=== PATIENT | female | born 1970 | race Caucasian/White ===

== ENCOUNTER 2016-12-23 23:30 | Emergency (ER) | payer OTHER ==
[2016-12-24 00:28] LABS: URINE SOURCE CLEAN CATCH
[2016-12-24 00:48] LABS: BILIRUBIN URINE NEGATIVE (NEGATIVE); BLOOD URINE 4+ (NEGATIVE); CLARITY CLEAR (CLEAR); COLOR YELLOW; GLUCOSE URINE NEGATIVE (NEGATIVE); LEUKOCYTES URINE 2+ (NEGATIVE); NITRITE URINE NEGATIVE (NEGATIVE); PROTEIN URINE 1+(30 mg/dL) mg/dL (NEGATIVE); SP GRAVITY URINE 1.025; UROBILINOGEN URINE 4+(12 mg/dL)
[2016-12-24 00:51] LABS: URINE CULTURE PL NEEDED? YES; URINE EPITHELIAL CELLS <10 /HPF (<10); URINE RBC 20-40 /HPF (<10)
--- NOTE | 2016-12-24 01:22 | PROVIDER DOCUMENTATION ---
HPI-Female /OB/Breast - General Chief Complaint: Abdominal Pain Stated Complaint: FEMALE Time Seen by Provider: 12/24/16 00:38 Source: reports: patient, family Allergies/Adverse Reactions: Patient Allergies Allergy/AdvReac Type Severity Reaction Status Date / Time No Known Allergies Allergy Verified 12/23/16 23:44 Home Medications: Home Medication List Medication Instructions Recorded Confirmed Last Taken Type Aspirin 325 mg PO DAILY #1 tablet 08/14/15 12/23/16 10/17/16 Rx Cholecalciferol (Vitamin D3) 50,000 unit PO DIRECTED 06/04/16 12/23/16 Unknown History [Vitamin D3] Metoprolol Succinate E.r. [Toprol 12.5 mg PO BID 06/04/16 12/23/16 10/17/16 History Xl] PRAVAstatin [Pravachol] 20 mg PO HS 06/04/16 12/23/16 10/17/16 History Hydrocodone/Acetaminophen [[place] 1 each PO Q4H PRN 10/18/16 12/23/16 10/17/16 History 10-325 Tablet] Cephalexin [Keflex] 500 mg PO BID #20 capsule 12/24/16 Unknown Rx - History of Present Illness-Female /OB Nature of Presenting Problem: 46 year old WF with PMH, HTN, CVA with right sided deficits presents with c/o suprapubic abd pain for 2 days. pt reports a history of same several months ago. denies dysuria, fever, chills, nausea, vomiting, diarrhea. pt reports her appetite has decreased in the last 2 days. Does patient report she is ?: No Location of complaint: reports: suprapubic Radiation: reports: none Quality of Pain: reports: dull, sharp, stabbing Severity in ED: reports: mild Onset/Duration: reports: 2 days ago Timing: reports: still present, constant, getting worse Context/Activities at Onset: reports: none Vaginal Symptoms: reports: no symptoms Vaginal Bleeding Amount: None Urinary Symptoms: reports: no symptoms Associated Symptoms: reports: loss of appetite Similar Symptoms Previously?: Yes Recently seen or treated by another doctor?: No Review of Systems - Adult - REVIEW OF SYSTEMS - ADULT Constitutional: reports: no symptoms reported. denies: chills, fever, fatique Eyes: reports: no symptoms reported. denies: discharge, blurred vision, double vision, redness Ears, Nose, Mouth & Throat: reports: no symptoms reported. denies: ear discharge, ear pain, nose pain, loose teeth, throat pain, throat swelling Cardiovascular: reports: no symptoms reported. denies: chest pain, palpitations , syncope Respiratory: reports: no symptoms reported. denies: chronic cough, cough, shortness of breath, wheezing Gastrointestinal: reports: see HPI, abdominal pain, poor appetite. denies: hematemesis, constipation, diarrhea, difficulty swallowing, frequent heartburn, nausea, rectal bleeding, vomiting Genitourinary: reports: see HPI. denies: dysuria, discharge, frequency, flank pain, frequent UTI's, hematuria, hesitency, incontinence, urinary retention, urgency Musculoskeletal: reports: no symptoms reported. denies: bone pain, joint pain, joint swelling, neck pain Integumentary: reports: no symptoms reported. denies: hives, nail changes, skin sores/ulcer Neurological: reports: no symptoms reported. denies: ataxia, dizziness/vertigo , numbness, paresthesia Psychiatric: reports: no symptoms reported Endocrine: reports: no symptoms reported Hematologic/Lymphatic: reports: no symptoms reported Allergic/Immunologic: reports: no symptoms reported All Other Systems: Reviewed and Negative Past History - Adult - PAST MEDICAL HISTORY-ADULT Review of Records: reports: Old Records Reviewed, Nursing Assessment Review, Medications Reviewed, Social history reviewed & non-contributory. Major Childhood Illnesses: reports: denies history Cardiovascular: reports: denies history Respiratory: reports: denies history Gastrointestinal: reports: GERD Obstetrical/Gynecological: reports: denies history Genitourinary: reports: denies history Musculoskeletal: reports: denies history Neurological: reports: cognitive dysfunction, CVA, stroke deficits, speech difficulty Endocrine/Immune: reports: denies history Other Conditions: reports: denies history - PRIOR SURGERIES/PROCEDURES Surgical/Procedure History: reports: hysterectomy - IMMUNIZATION STATUS Childhood Immunizations: See Nurse Assessment Flu Vaccine: See Nurse Assessment - FAMILY HISTORY Family History: reviewed, not pertinent - SOCIAL HISTORY Smoking: cigarettes Provider spent 3-5 mins advising pt. on dangers of tobacco.: Discussed manners to quit use, and f/u contacts for add'l counseling. Substance Use: none/never Alcohol Use Frequency: never Physical Exam-General - PHYSICAL EXAM-ADULT Initial Vital Signs Reviewed: Yes - CONSTITUTIONAL General Appearance: appears well, alert, no apparent distress. negative: mild distress, moderate distress, severe distress - EYES Eyes: pink conjunctivae. negative: conjuctival exudate, pale conjunctivae, photophobia, sclera injected, scleral icterus, subconjunctival hemorrhage - HEAD, EARS, NOSE, MOUTH & THROAT HENMT: normocephalic/atraumatic, moist mucous membranes, normal ENT inspection - NECK Neck: non-tender, full range of motion, supple, normal inspection - RESPIRATORY Respiratory: chest non-tender, lungs clear, normal breath sounds, no pleuratic chest pain, no respiratory distress, no accessory muscle use. negative: respiratory distress, decreased breath sounds, accessory muscle use, crackles, rales, rhonchi - CARDIOVASCULAR Cardiovascular: normal peripheral pulses, regular rate, rhythm, no edema, no gallop - GASTROINTESTINAL (ABDOMEN) Abdominal Exam: normal bowel sounds, soft, tenderness (generalized abd pain, non -focal). negative: non tender, distended, guarding, rigid, rebound, hernia, mass, hepatomegaly, spleenomegaly, McBurney's point tenderness, Dumas's sign, obturator sign, psoas, Rovsing's sign - GENITOURINARY Female Genitalia/Pelvic Exam: deferred Rectal Exam: deferred Hemoccult Exam: deferred - LYMPHATIC Lymphatic: no adenopathy - MUSCULOSKELETAL Back Exam: normal inspection, no CVA tenderness, no vertebral tenderness Extremity: normal range of motion, non-tender, normal gait, normal inspection, no pedal edema, no calf tenderness, normal capillary refill Peripheral Pulses: radial (R): 3+, radial (L): 3+, dorsalis-pedis (R): 3+, dorsalis-pedis (L): 3+ - SKIN Integumentary: normal color, normal turgor, warm/dry - NEUROLOGIC Neurologic: grossly normal, no motor/sensory deficits - PSYCHIATRIC Psych/Mental Status: normal mood/affect, normal thought content, normal thought process, oriented x 3 Progress - PLAN OF CARE/RESULTS Progress/Plan/Lab Results: Laboratory Tests 12/23/16 12/23/16 12/23/16 00:38 00:38 23:50 WBC 11.87 H RBC 3.95 L Hgb 8.1 L Hct 26.8 L MCV 67.8 L MCH 20.5 L MCHC 30.2 L RDW Std Deviation 20.1 H Plt Count 432 H MPV 10.7 H Immature Gran % (Auto) 0.2 Neut % (Auto) 59.5 Lymph % (Auto) 28.8 [place] % (Auto) 6.4 Eos % (Auto) 4.5 Baso % (Auto) 0.6 Immature Gran # (Auto) 0.02 Neut # (Auto) 7.07 H Lymph # (Auto) 3.42 H [place] # (Auto) 0.76 H Eos # (Auto) 0.53 Baso # (Auto) 0.07 Segmented Neutrophils 61 Band Neutrophils 2 H Lymphocytes 25 Monocytes 7 Eosinophils 5 Hypochromia 2+ Large Platelets OCCASIONAL Poikilocytosis 2+ Anisocytosis 3+ Microcytosis 3+ Target Cells 1+ Ovalocytes 1+ Stomatocytes 1+ Sodium 143 Potassium 3.9 Chloride 107 Carbon Dioxide 25 Anion Gap 12 BUN 26 H Creatinine 1.2 H Estimated GFR/1.73 m2 48 BUN/Creatinine Ratio 22 Glucose 95 Calculated Osmolality 290 Calcium 9.4 Total Bilirubin < 0.15 L AST 8 L ALT < 5 L Alkaline Phosphatase 70 Total Protein 7.3 Albumin 3.8 Globulin 4.0 Albumin/Globulin Ratio 1.0 Amylase 47 Lipase 29 Urine Source CLEAN CATCH Urine Color YELLOW Urine Clarity CLEAR Urine pH 5.0 Ur Specific [place] 1.025 Urine Protein 1+(30 mg/dL) A Urine Ketones TRACE Urine Blood 4+ Urine Nitrite NEGATIVE Urine Bilirubin NEGATIVE Urine Urobilinogen 4+(12 mg/dL) Urine Microscopic RBC 20-40 A Urine WBC 2+ A Urine Microscopic WBC 10-20 A Ur Epithelial Cells <10 Urine Bacteria 3+ Urine Glucose NEGATIVE Orders Category Date Time Status FLAT/UPRIGHT ABD/1 VIEW CHEST [RAD] Stat Exams 12/24/16 01:15 Completed AMYLASE [CHEM] Stat Lab 12/23/16 00:38 Completed CBC WITH DIFF [HEME] Stat Lab 12/23/16 00:38 Completed COMPREHENSIVE METABOLIC PANEL [CHEM] Stat Lab 12/23/16 00:38 Completed LIPASE [CHEM] Stat Lab 12/23/16 00:[address] W/POSS RFLX CULT [URINALYSIS] Stat Lab 12/24/16 00:23 Completed URINE CULTURE [RM] Routine Lab 12/24/16 00:51 Results CefTRIAXONE [Rocephin] Med 12/24/16 02:25 Discontinued 1 gm IM NOW ONE Lidocaine 1% Pf [Xylocaine-Mpf 1%] Med 12/24/16 02:25 Discontinued 5 ml INJ NOW ONE Reviewed lab, H&P with Barby, agrees with plan of care and treatment. - XRAY 1 XRAY Study: Chest, Abdomen Impression: Normal - CHANGE OF SHIFT REPORT (ED Provider) Report Given and Care Transferred to:: Dr. Dior Time of Transfer: 02:09 Items Pending: Labs Tentative Impression of Patient: UTI Departure - Departure Time of Disposition Order: 02:23 DIAGNOSIS: UTI (urinary tract infection) Qualifiers: Urinary tract infection type: acute cystitis Hematuria presence: without hematuria Qualified Code(s): N30.00 - Acute cystitis without hematuria Abdominal pain Qualifiers: Abdominal location: lower abdomen, unspecified Qualified Code(s): R10.30 - Lower abdominal pain, unspecified Disposition: HOME 01 Certified Medical Emergency: Emergent Condition: Stable Additional Instructions: Follow up with your primary care doctor as soon as possible. ED Follow Up Instructions: You have been treated by a care provider in the Emergency Department. These instructions are being provided to you so you can have an understanding of how to care for yourself upon discharge. Upon discharge from the Emergency Department, you are responsible for making arrangements for follow-up care by a physician of your choice. Take all prescribed medications as directed. Return to the Emergency Department immediately for any new or worsening symptoms. You may call the Physician Referral phone number at [phone] to obtain a list of Physicians who are taking new patients. Prescriptions: Cephalexin [Keflex] 500 mg PO BID #20 capsule Referrals: Ly Yuen CRNP [Primary Care Provider] - Forms: Return to School/Parent Work Instructions: Abdominal Pain, Adult, [id number], Urinary Tract Infection Attestation - Physician/ LUIS MANUEL Attestation Patient care was provided by Advanced Practice Provider:: Yes Advanced Practice Provider:: Adela Herzog Advanced Practice Provider documentation review:: The Mid-level provider documentation, treatment plan and medical decision making was reviewed by the physician who agrees with all treatment and medical decision making by the MLP.
[2016-12-24 01:32] LABS: AGAP 12; ALBUMIN 3.8 g/dL (3.5-5.0); ALKALINE PHOSPHATASE 70 U/L (32-104); AMYLASE 47 U/L (20-200); BUN 26 mg/dL (8-22); CALCIUM 9.4 mg/dL (8.8-10.2); CHLORIDE 107 mmol/L (98-107); COSMO 290; GOT 8 U/L (10-30); GPT < 5 U/L (10-36); LIPASE 29 U/L (13-60); POTASSIUM 3.9 mmol/L (3.5-5.1); SODIUM 143 mmol/L (136-145); TCO2 25 mmol/L (25-35); TOTAL BILIRUBIN < 0.15 mg/dL (0.20-1.00); TOTAL PROTEIN 7.3 g/dL (6.3-8.3)
[2016-12-24 01:56] LABS: BASO% 0.6 % (0.0-0.8); EOS# 0.53 X1000 (0.0-0.7); EOS% 4.5 % (0.0-10.0); HEMATOCRIT 26.8 % (37.0-47.0); HEMOGLOBIN 8.1 g/dL (12.0-16.0); IMM GRAN# 0.02 X1000 (0.0-0.04); IMM GRAN% 0.2 % (0.0-0.5); LYMPH# 3.42 X1000 (1.2-3.4); LYMPH% 28.8 % (20.5-51.1); MANUAL DIFF NEEDED? YES; MCH 20.5 PG (27-31); MCHC 30.2 g/dL (33-37); MCV 67.8 FL (81-99); MONO# 0.76 X1000 (0.11-0.59); MONO% 6.4 % (1.7-9.3); MPV 10.7 FL (7.4-10.4); NEUT% 59.5 % (42.2-75.2); PLT 432 X1000 (130-400); RBC 3.95 XMIL (4.2-5.4)
[2016-12-24] MEDS ORDERED: XYLOCAINE-MPF 1% INJ ONE (02:25)
[2016-12-24] MEDS ORDERED: ROCEPHIN IM ONE (02:25)
[2016-12-24 02:26] LABS: BANDS 2 % (0-1); EOS 5 % (1-10); HYPOCHROM 2+; LYMPHS 25 % (21-51); MONO 7 % (1-9); TARGET CELLS 1+
[2016-12-24 02:27] LABS: LARGE PLATELETS OCCASIONAL; STOMATOCYTES 1+
[2016-12-24 02:32] VITALS: BP 115/81
--- NOTE | 2016-12-24 08:20 | Diag Imaging Result Document ---
PROCEDURE NAME: FLAT/UPRIGHT ABD/1 VIEW CHEST - 12/24/2016 FLAT AND UPRIGHT AND CHEST, FOUR VIEWS: FINDINGS: The lungs are well expanded. No cardiomegaly. No pneumonia. No free air beneath the diaphragm. Mild scoliosis. The bowel loops are not dilated. No organomegaly. No abnormal abdominal or pelvic calcifications. IMPRESSION: No acute abnormality.
== END 2016-12-24 02:46 | disposition home or self-care (01) ==
LOC: P.ED 23:30
DX: N30.00 Acute cystitis without hematuria (principal); R10.817 Generalized abdominal tenderness; I10 Essential (primary) hypertension; I69.398 Other sequelae of cerebral infarction; R47.9 Unspecified speech disturbances; R10.30 Lower abdominal pain, unspecified; F17.210 Nicotine dependence, cigarettes, uncomplicated; Z79.82 Long term (current) use of aspirin; Z79.899 Other long term (current) drug therapy; Z71.6 Tobacco abuse counseling
CPT/HCPCS: 74022; 80053; 81001; 82150; 83690; 85025; 87088; J0696